=== PATIENT | female | born 1960 | race Caucasian/White ===

== ENCOUNTER 2017-12-29 08:58 | Emergency (ER) | payer MEDICARE ==
[~2017-12-29] VITALS: Ht 167.6 cm; Wt 52.4 kg
[~2017-12-29 08:58] MED LIST: ACYC-1 PO; ALBU6.7H INH; EPZITAB4 PO; INTE200T2 PO; LEVA750T9 PO; PRED20 PO; PROP10TA6 PO; RALT400 PO; VENTAER INH; [UNRECOGNIZED DRUG - CODE] PO
[2017-12-29 09:01] VITALS: BP 114/57; PULSE 110; RESP 30; TEMP 98.7; O2SAT 94
[2017-12-29] MEDS ORDERED: SODIUM CHLORID 0.9% 500 ML INJ 500 ML IV ONE (10:00)
[2017-12-29] MEDS ORDERED: ACETAMINOPHEN 325 MG TAB PO ONE (10:00)
[2017-12-29] MEDS ORDERED: RESP: ALBUTEROL 2.5 MG/IPRATROPIUM 0.5 MG NEB (SCH) INH ONE (10:00)
--- NOTE | 2017-12-29 10:05 | PD ---
HPI Chief Complaint: Cold / Flu Symptoms Time Seen by Provider: 09:48 Travel History International Travel<30 days: No Contact w/Intl Traveler<30days: No Traveled to known affect area: No History of Present Illness HPI 57-year-old female with history of HIV on HAART, last CD4 count unknown, however the patient reports that it was good and that her viral load is undetectable, dilated cardiomyopathy with AICD, here for evaluation of cough, body aches, shortness of breath, generalized malaise, fever. Symptoms have been going on for last 2 days. She did temp of 101F yesterday at home. Cough is nonproductive. No abdominal pain, nausea, vomiting, or diarrhea. PFSH Past Medical History Arthritis: No Asthma: Yes Autoimmune Disease: Yes Blood Disorders: No Anxiety: No Depression: No Heart Rhythm Problems: No Cancer: Yes (L BREAST; MASTECTOMY 1996) Cardiomyopathy: Yes (DILATED) Cardiovascular Problems: Yes (CARDIOMYOPATHY, PACEMAKER) High Cholesterol: No Chemotherapy: Yes Chest Pain: No Congestive Heart Failure: No COPD: No Cerebrovascular Accident: Yes ("MINI STROKE" 2004) Diabetes: No Diminished Hearing: No GERD: No Glaucoma: No Genitourinary: No Headaches: No Hepatitis: No Hiatal Hernia: No Hypertension: No Immune Disorder: Yes (HIV +) Kidney Stones: No Musculoskeletal: No Neurologic: No Psychiatric: No Respiratory: Yes (ASTHMA) Myocardial Infarction: No Radiation Therapy: Yes Renal Failure: No Seizures: No Sickle Cell Disease: No Sleep Apnea: No Thyroid Disease: No Ulcer: No PNEUMOCCOCAL Vaccine (Year): 2 Menopausal: Yes Tubal Ligation: Yes Past Surgical History Abdominal Surgery: Yes (PEG TUBE PLACEMENT AND REMOVAL) AICD: Yes Body Medical Devices: PACEMAKER Cardiac Surgery: Yes (PACEMAKER PLACEMENT) Ear Surgery: No Endocrine Surgery: No Eye Surgery: No Genitourinary Surgery: No Gynecologic Surgery: Yes (LEFT MASTECTOMY) Oral Surgery: No Pacemaker: Yes Thoracic Surgery: No Tonsillectomy: Yes Other Surgery: Yes (LEFT RADICAL MASTECTOMY 8 YEARS) Social History Alcohol Use: Yes (OCCASIONALLY) Tobacco Use: Yes (2 PPD) Substance Use: No Allergies-Medications (Allergen,Severity, Reaction): Coded Allergies: Sulfa (Sulfonamide Antibiotics) (Unverified Allergy, Severe, 12/29/17) CONFIRM? penicillin G (Unverified Allergy, Severe, PT ALLERGIC TO "CILINS", 12/29/17 ) 08/13/04: PT ALLERGIC TO "CILINS" procaine (Unverified Allergy, Severe, 12/29/17) CONFIRM? amoxicillin (Verified Allergy, Intermediate, RASH, 12/29/17) Reported Meds & Prescriptions Reported Meds & Active Scripts Active Reported Selzentry Liq (Maraviroc) 20 Mg/Ml Solution 300 Mg PO DAILY Triumeq (Usbfpjfk-Bykurqdrpznj-Puckgumkep) 600-50-300 Mg Tab 1 Tab PO DAILY Hazardous agent; use appropriate precautions for handling & disposal. Review of Systems Except as stated in HPI: all other systems reviewed are Neg Physical Exam Narrative GENERAL: Well-developed, thin, comfortable, no apparent distress. SKIN: Focused skin assessment warm/dry. HEAD: Atraumatic. Normocephalic. EYES: Pupils equal and round. No scleral icterus. No injection or drainage. ENT: No nasal bleeding or discharge. Mucous membranes pink and moist. Normal pharynx. NECK: Trachea midline. No JVD. CARDIOVASCULAR: Regular rate and rhythm. RESPIRATORY: No accessory muscle use. Clear to auscultation. Breath sounds equal bilaterally. GASTROINTESTINAL: Abdomen soft, non-tender, nondistended. MUSCULOSKELETAL: No obvious deformities. No clubbing. No cyanosis. No edema. NEUROLOGICAL: Awake and alert. No obvious cranial nerve deficits. Motor grossly within normal limits. Normal speech. PSYCHIATRIC: Appropriate mood and affect; insight and judgment normal. Data Data Last Documented VS Vital Signs Date Time Temp Pulse Resp B/P (MAP) Pulse Ox O2 Delivery O2 Flow Rate FiO2 12/29/17 10:15 97 18 94 12/29/17 09:01 98.7 114/57 (76) Orders Orders Sepsis Workup Initiated (12/29/17 ) Complete Blood Count With Diff (12/29/17 10:00) Comprehensive Metabolic Panel (12/29/17 10:00) Prothrombin Time / Inr (Pt) (12/29/17 10:00) Act Partial Throm Time (Ptt) (12/29/17 10:00) Lactic Acid Sepsis Protocol (12/29/17 10:00) Urinalysis - C+S If Indicated (12/29/17 10:00) Influenzae A/B Antigen (12/29/17 10:00) Blood Culture (12/29/17 10:00) Chest, Single Ap (12/29/17 10:00) Ecg Monitoring (12/29/17 10:00) Iv Access Insert/Monitor (12/29/17 10:00) Oximetry (12/29/17 10:00) Acetaminophen (Tylenol) (12/29/17 10:00) Albuterol-Ipratropium Neb (Duoneb Neb) (12/29/17 10:00) Sodium Chlorid 0.9% 500 Ml Inj (Ns 500 M (12/29/17 10:00) Oseltamivir (Tamiflu) (12/29/17 11:15) Ketorolac Inj (Toradol Inj) (12/29/17 11:15) Labs Laboratory Tests Test 12/29/17 10:26 White Blood Count 6.3 TH/MM3 Red Blood Count 4.68 MIL/MM3 Hemoglobin 14.2 GM/DL Hematocrit 42.7 % Mean Corpuscular Volume 91.2 FL Mean Corpuscular Hemoglobin 30.4 PG Mean Corpuscular Hemoglobin Concent 33.4 % Red Cell Distribution Width 13.1 % Platelet Count 202 TH/MM3 Mean Platelet Volume 7.2 FL Neutrophils (%) (Auto) 77.1 % Lymphocytes (%) (Auto) 19.4 % Monocytes (%) (Auto) 2.7 % Eosinophils (%) (Auto) 0.1 % Basophils (%) (Auto) 0.7 % Neutrophils # (Auto) 4.9 TH/MM3 Lymphocytes # (Auto) 1.2 TH/MM3 Monocytes # (Auto) 0.2 TH/MM3 Eosinophils # (Auto) 0.0 TH/MM3 Basophils # (Auto) 0.0 TH/MM3 CBC Comment DIFF FINAL Differential Comment Prothrombin Time 11.0 SEC Prothromb Time International Ratio 1.1 RATIO Activated Partial Thromboplast Time 30.8 SEC Blood Urea Nitrogen 8 MG/DL Creatinine 0.74 MG/DL Random Glucose 88 MG/DL Total Protein 7.8 GM/DL Albumin 3.5 GM/DL Calcium Level 8.6 MG/DL Alkaline Phosphatase 75 U/L Aspartate Amino Transf (AST/SGOT) 19 U/L Alanine Aminotransferase (ALT/SGPT) 15 U/L Total Bilirubin 0.3 MG/DL Sodium Level 127 MEQ/L Potassium Level 3.8 MEQ/L Chloride Level 93 MEQ/L Carbon Dioxide Level 24.0 MEQ/L Anion Gap 10 MEQ/L Estimat Glomerular Filtration Rate 80 ML/MIN Lactic Acid Level 1.4 mmol/L [facility] Medical Decision Making Medical Screen Exam Complete: Yes Emergency Medical Condition: Yes Differential Diagnosis Pneumonia, influenza, URI, viral illness, PCP, PE Narrative Course Vital signs reviewed. CBC: WBC 6.3, hemoglobin 14.2, hematocrit 42.7, platelets 22. CMP is remarkable for sodium 127, chloride 93, otherwise unremarkable. Lactic acid is 1.4. Chest x-ray: The lungs are clear. Influenza B-positive. The patient was given a DuoNeb treatment and a half a liter normal saline IV. She was made aware of all findings. On reassessment she is resting comfortably. She is not in any distress. WBC count is normal. Although she has HIV and the flu, at this point I believe she is stable for discharge home with a perception for Tamiflu and follow up with her primary care physician this week. She was advised to stay hydrated with plenty of fluids and to keep fever under control with Tylenol and ibuprofen. She was informed on when to return to the emergency department. She verbalizes understanding and agreement with plan. Diagnosis Primary Impression: Influenza B Referrals: Primary Care Physician 2 days Additional Instructions: Follow-up with your primary care physician this week. Stay hydrated with plenty of fluids. Keep fever under control with Tylenol and ibuprofen. Return to the emergency department for worsening symptoms or any other concerns. Scripts Albuterol 18 GM Inh (Ventolin Hfa 18 GM Inh) 90 Mcg/Act Aer 2 PUFF INH Q4-6H Y for SHORTNESS OF BREATH, #1 INHALER 0 Refills Prov: Chuck Ferrari MD 12/29/17 Oseltamivir (Tamiflu) 75 Mg Cap 75 MG PO BID for Mgmt Viral Infection for 5 Days, #10 CAP 0 Refills Prov: Chuck Ferrari MD 12/29/17 Disposition: 01 DISCHARGE HOME Condition: Stable Chuck Ferrari MD Dec 29, 2017 10:05
[2017-12-29 10:15] VITALS: O2SAT 94
[2017-12-29 10:36] LABS: AUTOMATED NEUTROPHIL # 4.9 TH/MM3 (1.8-7.7); BASOPHIL % 0.7 % (0.0-2.0); EOSINOPHIL % 0.1 % (0.0-4.0); HEMATOCRIT 42.7 % (35.0-46.0); HEMOGLOBIN 14.2 GM/DL (11.6-15.3); LYMPH % 19.4 % (9.0-44.0); LYMPHOCYTE # 1.2 TH/MM3 (1.0-4.8); MEAN CELL VOLUME 91.2 FL (80.0-100.0); MEAN CORPUSCULAR HEMOGLOBIN 30.4 PG (27.0-34.0); MEAN CORPUSCULAR HGB CONC 33.4 % (32.0-36.0); MEAN PLATELET VOLUME 7.2 FL (7.0-11.0); MONO % 2.7 % (0.0-8.0); MONOCYTE # 0.2 TH/MM3 (0-0.9); NEUT % 77.1 % (16.0-70.0); PLATELET COUNT 202 TH/MM3 (150-450); RED BLOOD COUNT 4.68 MIL/MM3 (4.00-5.30); RED CELL DISTRIBUTION WIDTH 13.1 % (11.6-17.2); WHITE BLOOD COUNT 6.3 TH/MM3 (4.0-11.0)
[2017-12-29 10:48] LABS: CHLORIDE 93 MEQ/L (98-107); SODIUM (NA) 127 MEQ/L (136-145)
[2017-12-29] MEDS ORDERED: ABAC1TAB3 PO (10:48)
[2017-12-29] MEDS ORDERED: [UNRECOGNIZED DRUG - CODE] PO (10:48)
[2017-12-29 10:51] LABS: CALCIUM 8.6 MG/DL (8.5-10.1)
[2017-12-29 10:52] LABS: ALBUMIN 3.5 GM/DL (3.4-5.0); BLOOD UREA NITROGEN 8 MG/DL (7-18); GLUCOSE,RANDOM 88 MG/DL (74-106); INTERNATIONAL NORMALIZED RATIO 1.1 RATIO
[2017-12-29 10:55] LABS: ALT (GPT) 15 U/L (10-53); AST (GOT) 19 U/L (15-37); CREATININE 0.74 MG/DL (0.50-1.00); GLOMERULAR FILTRATION RATE 80 ML/MIN (>89)
[2017-12-29 10:57] LABS: TOTAL BILIRUBIN ADULT 0.3 MG/DL (0.2-1.0); TOTAL PROTEIN 7.8 GM/DL (6.4-8.2)
[2017-12-29 11:03] LABS: ALKALINE PHOSPHATASE 75 U/L (45-117)
--- NOTE | 2017-12-29 11:06 | RADRPT ---
EXAM DATE/TIME: 12/29/2017 10:30 [facility] COMPARISON: No previous studies available for comparison. INDICATIONS : Cough and Fever MEDICAL HISTORY : Cardiovascular disease. SURGICAL HISTORY : Pacemaker. ENCOUNTER: Initial ACUITY: 3 days PAIN SCORE: 7/10 LOCATION: Bilateral chest FINDINGS: A single view of the chest demonstrates the lungs to be symmetrically aerated without evidence of mas s, infiltrate or effusion. The cardiomediastinal contours are unremarkable. Cardiac and epicardiac leads in place. Multiple hemoclips in the left axilla. Osseous structures are intact. CONCLUSION: The lungs are clear. Modesto Fleming MD on December 29, 2017 at 11:04 Board Certified Radiologist. This report was verified electronically.
[2017-12-29] MEDS ORDERED: KETOROLAC TROMETHAMINE 30 MG/ML (IVP) VIAL IV PUSH ONE (11:15)
[2017-12-29] MEDS ORDERED: OSELTAMIVIR PHOSPHATE 75 MG CAP PO ONE (11:15)
[2017-12-29 11:19] VITALS: BP 119/50; PULSE 50; RESP 18; TEMP 99.4; O2SAT 95
[2017-12-29] MEDS ORDERED: OSEL75 PO (11:22)
[2017-12-29] MEDS ORDERED: VENTAER INH (11:22)
== END 2017-12-29 12:07 | disposition home or self-care (01) ==
LOC: PHED 08:58
DX: J10.1 Influenza due to other identified influenza virus with other respiratory manifestations (principal); B20 Human immunodeficiency virus [HIV] disease; I42.0 Dilated cardiomyopathy; J45.909 Unspecified asthma, uncomplicated; F17.200 Nicotine dependence, unspecified, uncomplicated; Z86.73 Personal history of transient ischemic attack (TIA), and cerebral infarction without residual deficits; Z95.810 Presence of automatic (implantable) cardiac defibrillator
CPT/HCPCS: 71045; 80053; 83605; 85025; 85610; 85730; 87040; 87804; 94664; 96361; 96374; 99284; J1885; J7040

== ENCOUNTER 2018-01-07 08:36 | Emergency (ER) | payer MEDICARE ==
[~2018-01-07] VITALS: Ht 167.6 cm; Wt 51.8 kg
[~2018-01-07 08:36] MED LIST changes: +ABAC1TAB3 PO; -ACYC-1 PO; -ALBU6.7H INH; -EPZITAB4 PO; -INTE200T2 PO; -LEVA750T9 PO; +OSEL75 PO; -PRED20 PO; -PROP10TA6 PO; -RALT400 PO; +[UNRECOGNIZED DRUG - CODE] PO; -[UNRECOGNIZED DRUG - CODE] PO
[2018-01-07] MEDS ORDERED: SODIUM CHLOR 0.9% 1000 ML INJ 1,000 ML IV ONE (08:49)
[2018-01-07] MEDS ORDERED: SODIUM CHLOR 0.9% 1000 ML INJ 800 ML IV ONE (08:49)
[2018-01-07 08:50] VITALS: BP 139/63; PULSE 112; RESP 18; TEMP 98.1; O2SAT 95
[2018-01-07] MEDS ORDERED: LEVOFLOXACIN 500 MG PREMIX INJ 100 ML IV ONE (09:00)
[2018-01-07 09:08] LABS: AUTOMATED NEUTROPHIL # 4.8 TH/MM3 (1.8-7.7); BASOPHIL % 0.7 % (0.0-2.0); EOSINOPHIL % 0.4 % (0.0-4.0); HEMATOCRIT 38.7 % (35.0-46.0); HEMOGLOBIN 13.5 GM/DL (11.6-15.3); LYMPH % 19.6 % (9.0-44.0); LYMPHOCYTE # 1.3 TH/MM3 (1.0-4.8); MEAN CELL VOLUME 89.5 FL (80.0-100.0); MEAN CORPUSCULAR HEMOGLOBIN 31.1 PG (27.0-34.0); MEAN CORPUSCULAR HGB CONC 34.8 % (32.0-36.0); MEAN PLATELET VOLUME 7.3 FL (7.0-11.0); MONO % 6.3 % (0.0-8.0); MONOCYTE # 0.4 TH/MM3 (0-0.9); PLATELET COUNT 420 TH/MM3 (150-450); RED BLOOD COUNT 4.32 MIL/MM3 (4.00-5.30); RED CELL DISTRIBUTION WIDTH 13.8 % (11.6-17.2); WHITE BLOOD COUNT 6.5 TH/MM3 (4.0-11.0)
--- NOTE | 2018-01-07 09:08 | PD ---
HPI Chief Complaint: Respiratory Symptoms Time Seen by Provider: 08:43 Travel History International Travel<30 days: No Contact w/Intl Traveler<30days: No History of Present Illness HPI This is a 57-year-old female with a history of asthma, HIV and dilated cardiomyopathy who presents for cough and shortness of breath. On December 28, she was diagnosed with influenza. She states that she has not had any further fever, chills. No more body aches. She continues to have a cough. She has mild associated shortness of breath at times. She feels generally weak. She has had decreased appetite. She is drinking fluids. No rash, headache, neck pain or stiffness. No vomiting or diarrhea. She states that she does not remember her last CD4 count but that it was within normal limits and her viral load was undetectable. She does continue to smoke cigarettes. Her cough is slightly alleviated by albuterol inhaler. She states her chest feels tight with coughing but does not otherwise hurt. This does not radiate to arm, neck, jaw. No lower extremity edema. Symptoms are mild to moderate in severity. Onset gradual. PFSH Past Medical History Arthritis: No Asthma: Yes Autoimmune Disease: Yes Blood Disorders: No Anxiety: No Depression: No Heart Rhythm Problems: No Cancer: Yes (L BREAST; MASTECTOMY 1996) Cardiomyopathy: Yes (DILATED) Cardiovascular Problems: Yes (CARDIOMYOPATHY, PACEMAKER) High Cholesterol: No Chemotherapy: Yes Chest Pain: No Congestive Heart Failure: No COPD: No Cerebrovascular Accident: Yes ("MINI STROKE" 2004) Diabetes: No Diminished Hearing: No GERD: No Glaucoma: No Genitourinary: No Headaches: No Hepatitis: No Hiatal Hernia: No Hypertension: No Immune Disorder: Yes (HIV +) Kidney Stones: No Musculoskeletal: No Neurologic: No Psychiatric: No Respiratory: Yes (ASTHMA) Myocardial Infarction: No Radiation Therapy: Yes Renal Failure: No Seizures: No Sickle Cell Disease: No Sleep Apnea: No Thyroid Disease: No Ulcer: No PNEUMOCCOCAL Vaccine (Year): 2 Menopausal: Yes Tubal Ligation: Yes Past Surgical History Abdominal Surgery: Yes (PEG TUBE PLACEMENT AND REMOVAL) AICD: Yes Body Medical Devices: PACEMAKER Cardiac Surgery: Yes (PACEMAKER PLACEMENT) Ear Surgery: No Endocrine Surgery: No Eye Surgery: No Genitourinary Surgery: No Gynecologic Surgery: Yes (LEFT MASTECTOMY) Oral Surgery: No Pacemaker: Yes Thoracic Surgery: No Tonsillectomy: Yes Other Surgery: Yes (LEFT RADICAL MASTECTOMY 8 YEARS) Social History Alcohol Use: Yes (OCCASIONALLY) Tobacco Use: Yes (2 PPD) Substance Use: No Allergies-Medications (Allergen,Severity, Reaction): Coded Allergies: Sulfa (Sulfonamide Antibiotics) (Unverified Allergy, Severe, 01/07/18) CONFIRM? penicillin G (Unverified Allergy, Severe, PT ALLERGIC TO "CILINS", 01/07/18 ) 08/13/04: PT ALLERGIC TO "CILINS" procaine (Unverified Allergy, Severe, 01/07/18) CONFIRM? amoxicillin (Verified Allergy, Intermediate, RASH, 01/07/18) Reported Meds & Prescriptions Reported Meds & Active Scripts Active Ventolin Hfa 18 GM Inh (Albuterol Sulfate) 90 Mcg/Act Aer 2 Puff INH Q4-6H PRN Tamiflu (Oseltamivir Phosphate) 75 Mg Cap 75 Mg PO BID 5 Days Reported Selzentry Liq (Maraviroc) 20 Mg/Ml Solution 300 Mg PO DAILY Triumeq (Mjuedusr-Hnjwdvaeapkd-Jjhojeoqwc) 600-50-300 Mg Tab 1 Tab PO DAILY Hazardous agent; use appropriate precautions for handling & disposal. Review of Systems Except as stated in HPI: all other systems reviewed are Neg Physical Exam Narrative GENERAL: Alert, well nourished, well appearing patient resting on the bed in no acute distress. Vital Signs reviewed SKIN: Focused skin assessment warm/dry. HEAD: Atraumatic. Normocephalic. EYES: Pupils equal and round. No scleral icterus. No injection or drainage. ENT: No nasal bleeding or discharge. Mucous membranes pink and moist. NECK: Trachea midline. No JVD. Spontaneous, painless full range of motion with no meningismus CARDIOVASCULAR: Regular rate and rhythm. No murmur appreciated. Extremities warm and well perfused with bounding peripheral pulses RESPIRATORY: No accessory muscle use. Clear to auscultation. Breath sounds equal bilaterally. Breathing easily and speaking in full sentences GASTROINTESTINAL: Abdomen soft, non-tender, nondistended. Normal bowel sounds. No rigid, rebound, guarding MUSCULOSKELETAL: No obvious deformities. No clubbing. No cyanosis. No edema. Compartments are soft. No palpable calf cords. Negative Homans sign NEUROLOGICAL: Awake and alert. No obvious cranial nerve deficits. Motor grossly within normal limits. Normal speech. Sensation intact. Normal gait PSYCHIATRIC: Appropriate mood and affect; insight and judgment normal. Data Data Last Documented VS Vital Signs Date Time Temp Pulse Resp B/P (MAP) Pulse Ox O2 Delivery O2 Flow Rate FiO2 01/07/18 09:14 110 20 96 Room Air 01/07/18 08:50 98.1 139/63 (88) Orders Orders Electrocardiogram (01/07/18 08:49) Complete Blood Count With Diff (01/07/18 08:49) Comprehensive Metabolic Panel (01/07/18 08:49) Prothrombin Time / Inr (Pt) (01/07/18 08:49) Act Partial Throm Time (Ptt) (01/07/18 08:49) Lactic Acid Sepsis Protocol (01/07/18 08:49) Magnesium (Mg) (01/07/18 08:49) Ckmb (Isoenzyme) Profile (01/07/18 08:49) Troponin I (01/07/18 08:49) Urinalysis - C+S If Indicated (01/07/18 08:49) Blood Culture (01/07/18 08:49) Chest, Pa & Lat (01/07/18 08:49) Ecg Monitoring (01/07/18 08:49) Iv Access Insert/Monitor (01/07/18 08:49) Oximetry (01/07/18 08:49) Sodium Chlor 0.9% 1000 Ml Inj (Ns 1000 M (01/07/18 08:49) Sodium Chlor 0.9% 1000 Ml Inj (Ns 1000 M (01/07/18 08:49) Levofloxacin 500 Mg Premix Inj (Levaquin (01/07/18 09:00) Urine Culture (01/07/18 09:10) Labs Laboratory Tests Test 01/07/18 08:50 01/07/18 09:10 White Blood Count 6.5 TH/MM3 Red Blood Count 4.32 MIL/MM3 Hemoglobin 13.5 GM/DL Hematocrit 38.7 % Mean Corpuscular Volume 89.5 FL Mean Corpuscular Hemoglobin 31.1 PG Mean Corpuscular Hemoglobin Concent 34.8 % Red Cell Distribution Width 13.8 % Platelet Count 420 TH/MM3 Mean Platelet Volume 7.3 FL Neutrophils (%) (Auto) 73.0 % Lymphocytes (%) (Auto) 19.6 % Monocytes (%) (Auto) 6.3 % Eosinophils (%) (Auto) 0.4 % Basophils (%) (Auto) 0.7 % Neutrophils # (Auto) 4.8 TH/MM3 Lymphocytes # (Auto) 1.3 TH/MM3 Monocytes # (Auto) 0.4 TH/MM3 Eosinophils # (Auto) 0.0 TH/MM3 Basophils # (Auto) 0.0 TH/MM3 CBC Comment DIFF FINAL Differential Comment Prothrombin Time 11.1 SEC Prothromb Time International Ratio 1.1 RATIO Activated Partial Thromboplast Time 25.9 SEC Blood Urea Nitrogen 5 MG/DL Creatinine 0.57 MG/DL Random Glucose 118 MG/DL Total Protein 7.7 GM/DL Albumin 2.8 GM/DL Calcium Level 8.5 MG/DL Magnesium Level 2.2 MG/DL Alkaline Phosphatase 68 U/L Aspartate Amino Transf (AST/SGOT) 10 U/L Alanine Aminotransferase (ALT/SGPT) 20 U/L Total Bilirubin 0.6 MG/DL Sodium Level 132 MEQ/L Potassium Level 3.7 MEQ/L Chloride Level 98 MEQ/L Carbon Dioxide Level 26.0 MEQ/L Anion Gap 8 MEQ/L Estimat Glomerular Filtration Rate 109 ML/MIN Lactic Acid Level 1.4 mmol/L Total Creatine Kinase 27 U/L Troponin I LESS THAN 0.02 NG/ML Urine Collection Type CATH Urine Color STRAW Urine Turbidity CLEAR Urine pH 7.5 Urine Specific Beason 1.003 Urine Protein NEG mg/dL Urine Glucose (UA) NEG mg/dL Urine Ketones NEG mg/dL Urine Occult Blood NEG Urine Nitrite NEG Urine Bilirubin NEG Urine Leukocyte Esterase NEG Urine WBC 3-5 /hpf Urine Squamous Epithelial Cells 0-5 /hpf Urine Bacteria MOD /hpf Microscopic Urinalysis Comment CATH-CULTURE IND Urine Collection Time 09:10 [facility] Medical Decision Making Medical Screen Exam Complete: Yes Emergency Medical Condition: Yes Medical Record Reviewed: Yes Interpretation(s) EKG shows electronic ventricular pacemaker. Rate 100 Laboratory Tests Test 01/07/18 08:50 01/07/18 09:10 White Blood Count 6.5 TH/MM3 Red Blood Count 4.32 MIL/MM3 Hemoglobin 13.5 GM/DL Hematocrit 38.7 % Mean Corpuscular Volume 89.5 FL Mean Corpuscular Hemoglobin 31.1 PG Mean Corpuscular Hemoglobin Concent 34.8 % Red Cell Distribution Width 13.8 % Platelet Count 420 TH/MM3 Mean Platelet Volume 7.3 FL Neutrophils (%) (Auto) 73.0 % Lymphocytes (%) (Auto) 19.6 % Monocytes (%) (Auto) 6.3 % Eosinophils (%) (Auto) 0.4 % Basophils (%) (Auto) 0.7 % Neutrophils # (Auto) 4.8 TH/MM3 Lymphocytes # (Auto) 1.3 TH/MM3 Monocytes # (Auto) 0.4 TH/MM3 Eosinophils # (Auto) 0.0 TH/MM3 Basophils # (Auto) 0.0 TH/MM3 CBC Comment DIFF FINAL Differential Comment Prothrombin Time 11.1 SEC Prothromb Time International Ratio 1.1 RATIO Activated Partial Thromboplast Time 25.9 SEC Blood Urea Nitrogen 5 MG/DL Creatinine 0.57 MG/DL Random Glucose 118 MG/DL Total Protein 7.7 GM/DL Albumin 2.8 GM/DL Calcium Level 8.5 MG/DL Magnesium Level 2.2 MG/DL Alkaline Phosphatase 68 U/L Aspartate Amino Transf (AST/SGOT) 10 U/L Alanine Aminotransferase (ALT/SGPT) 20 U/L Total Bilirubin 0.6 MG/DL Sodium Level 132 MEQ/L Potassium Level 3.7 MEQ/L Chloride Level 98 MEQ/L Carbon Dioxide Level 26.0 MEQ/L Anion Gap 8 MEQ/L Estimat Glomerular Filtration Rate 109 ML/MIN Lactic Acid Level 1.4 mmol/L Total Creatine Kinase 27 U/L Troponin I LESS THAN 0.02 NG/ML Urine Collection Type CATH Urine Color STRAW Urine Turbidity CLEAR Urine pH 7.5 Urine Specific Beason 1.003 Urine Protein NEG mg/dL Urine Glucose (UA) NEG mg/dL Urine Ketones NEG mg/dL Urine Occult Blood NEG Urine Nitrite NEG Urine Bilirubin NEG Urine Leukocyte Esterase NEG Urine WBC 3-5 /hpf Urine Squamous Epithelial Cells 0-5 /hpf Urine Bacteria MOD /hpf Microscopic Urinalysis Comment CATH-CULTURE IND Urine Collection Time 09:10 Last 24 hours Impressions Chest X-Ray 01/07/18 0849 Signed Impressions: Service Date/Time: Sunday, January 07, 2018 08:55 - CONCLUSION: No acute cardiopulmonary abnormality is identified. Silvio Hummel MD Differential Diagnosis Bronchitis, pneumonia, influenza, atypical angina, dehydration Narrative Course Patient was placed on a manager cardiac. IV access was established. Labs, chest x-ray were performed. Patient was given IV fluids and a dose of Rocephin and azithromycin. At 10:20 AM: Patient is resting comfortably on the bed no acute distress. She is having no difficulty breathing. Oxygen saturations on room air are 97%. Her lung sounds are clear. Her heart rate is now 98. I reviewed the results of the workup with her. Patient is adamant that she does not want to be admitted. She is requesting to be discharged. I voiced my concern with her ongoing cough and weakness, especially given her history of asthma and HIV. Patient again states that she will not be admitted to the hospital. Plan for discharge with supportive care, azithromycin and close outpatient follow-up within 2 days with primary physician. Patient will call today to make the appointment. Patient understands the importance of close outpatient follow-up. She understands she may require further testing and treatment as an outpatient. She understands strict return indications. She is comfortable with this plan and eager to go home. Diagnosis Primary Impression: Acute bronchitis Qualified Codes: J20.9 - Acute bronchitis, unspecified Referrals: Primary Care Physician 2 days Patient Instructions: Acute Bronchitis (ED), General Instructions Additional Instructions: Drink plenty of fluids to stay well hydrated. Eat regular meals. Take azithromycin as directed starting tomorrow-you got your dose already today. Follow-up with primary physician within 2 days for recheck. You may require further testing and treatment as an outpatient. Return if you have worsening symptoms. We offered you admission but you have declined. Med/Other Pt SpecificInfo: Prescription(s) given Scripts Azithromycin (Azithromycin) 250 Mg Tab 250 MG PO DAILY for Infection for 4 Days, #4 TAB 0 Refills Prov: Sierra Griffith MD 01/07/18 Disposition: DISCHARGE HOME Condition: Stable Sierra Griffith MD Jan 07, 2018 09:08
[2018-01-07 09:12] LABS: CHLORIDE 98 MEQ/L (98-107); SODIUM (NA) 132 MEQ/L (136-145)
[2018-01-07 09:14] VITALS: O2SAT 96
[2018-01-07 09:15] LABS: ALBUMIN 2.8 GM/DL (3.4-5.0); CALCIUM 8.5 MG/DL (8.5-10.1); GLUCOSE,RANDOM 118 MG/DL (74-106); MAGNESIUM 2.2 MG/DL (1.5-2.5)
[2018-01-07 09:16] LABS: BLOOD UREA NITROGEN 5 MG/DL (7-18)
[2018-01-07 09:18] LABS: ALT (GPT) 20 U/L (10-53)
[2018-01-07 09:19] LABS: AST (GOT) 10 U/L (15-37); CREATININE 0.57 MG/DL (0.50-1.00); GLOMERULAR FILTRATION RATE 109 ML/MIN (>89)
[2018-01-07 09:20] LABS: INTERNATIONAL NORMALIZED RATIO 1.1 RATIO; PROTHROMBIN TIME - PATIENT 11.1 SEC (9.8-11.6); TOTAL BILIRUBIN ADULT 0.6 MG/DL (0.2-1.0); TOTAL PROTEIN 7.7 GM/DL (6.4-8.2)
[2018-01-07 09:21] LABS: ALKALINE PHOSPHATASE 68 U/L (45-117)
[2018-01-07 09:22] LABS: BILIRUBIN, URINE NEG (NEG); BLOOD, URINE NEG (NEG); GLUCOSE,URINE NEG (NEG); KETONE, URINE NEG (NEG); NITRITE,URINE NEG (NEG); PH, URINE 7.5 (5.0-8.5); URINE LEUKOCYTE ESTERASE NEG (NEG)
[2018-01-07 09:24] LABS: TROPONIN I LESS THAN 0.02 NG/ML (0.02-0.05)
[2018-01-07 09:30] LABS: URINE COLOR STRAW (YELLW/STRAW)
[2018-01-07 09:31] LABS: BACTERIA, URINE MOD /hpf; SQUAMOUS EPITHELIAL CELL URINE 0-5 /hpf (0-5)
--- NOTE | 2018-01-07 10:17 | RADRPT ---
EXAM DATE/TIME: 01/07/2018 08:55 [facility] COMPARISON: CHEST SINGLE AP, December 29, 2017, 10:30. CHEST PA & LAT, February 12, 2012, 16:01. INDICATIONS : Short of breath, cough, recent influenza diagnosis. MEDICAL HISTORY : HIV CVA. Cardiomyopathy. Asthma. Smoker. Radiation therapy.Chemotherapy. SURGICAL HISTORY : Tubal ligation. Pacemaker. Mastectomy, left. Tonsillectomy. Peg tube placement/removal. ENCOUNTER: Initial ACUITY: 1 day PAIN SCORE: 0/10 LOCATION: chest FINDINGS: PA and lateral views of the chest demonstrate normal-sized cardiac silhouette. Left chest wall cardia c pacing device remains present with stable lead configuration. No effusion, consolidation, or pneumo thorax is visualized. The bones and soft tissues demonstrate no acute finding. Breast implants are pr esent. Surgical clips are within the left axilla. CONCLUSION: No acute cardiopulmonary abnormality is identified. Silvio Hummel MD on January 07, 2018 at 10:14 Board Certified Radiologist. This report was verified electronically.
[2018-01-07] MEDS ORDERED: AZIT250T3 PO (10:34)
[2018-01-07 10:46] VITALS: BP 121/60; PULSE 92; RESP 16; O2SAT 96
--- NOTE | 2018-01-08 09:22 | EKG ---
Date Performed: 01/07/2018 Time Performed: 08:49:57 PTAGE: 57 years EKG: ELECTRONIC VENTRICULAR PACEMAKER ABNORMAL RHYTHM ECG Compared to PREVIOUS TRACING , electronic ventricular pacer rhythm is now present. PREVIOUS TRACIN02/12/2012 15.10 DOCTOR: Ted Giron Interpretating Date/Time 01/08/2018 09:22:02
== END 2018-01-07 11:07 | disposition home or self-care (01) ==
LOC: PHED 08:36
DX: J20.9 Acute bronchitis, unspecified (principal); B96.20 Unspecified Escherichia coli [E. coli] as the cause of diseases classified elsewhere; B20 Human immunodeficiency virus [HIV] disease; J45.909 Unspecified asthma, uncomplicated; I42.9 Cardiomyopathy, unspecified; R94.31 Abnormal electrocardiogram [ECG] [EKG]; F17.210 Nicotine dependence, cigarettes, uncomplicated; Z85.3 Personal history of malignant neoplasm of breast; Z95.0 Presence of cardiac pacemaker; Z86.73 Personal history of transient ischemic attack (TIA), and cerebral infarction without residual deficits; Z88.2 Allergy status to sulfonamides; Z88.0 Allergy status to penicillin; Z79.899 Other long term (current) drug therapy
CPT/HCPCS: 71046; 80053; 81001; 82550; 83605; 83735; 84484; 85025; 85610; 85730; 87040; 87077; 87086; 87186; 93005; 96361; 96365; 99285; J1956; J7030